=== PATIENT | male | born 1955 | race Caucasian/White ===

== ENCOUNTER → 2020-02-06 09:42 | Outpatient (CLI) | payer OTHER, SELFPAY ==
--- NOTE | ~2020-02-06 | XR_ITS ---
EXAMINATION: XR foot LT min 3V DATE: 02/06/2020 10:15 INDICATION: Sen fracture follow-up TECHNIQUE: Dorsoplantar, lateral, and 2 oblique views of the left foot were obtained. COMPARISON: None. FINDINGS: There is an oblique intra-articular fracture at the lateral base of the fifth metatarsal. T he fracture fragments are by as much as 5 mm. A posterior splint is in place. No appreciabl e calcified callus has developed. No additional acute osseous abnormality is identified. 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 IMPRESSION: 1. Splinted Sen fracture of the fifth metatarsal without definite evidence of bony healing. Reviewed, dictated and finalized at location A.
== END ==
PROVIDERS: Visit Provider Podiatrist Foot & Ankle Surgery
DX: S92.355D Nondisplaced fracture of fifth metatarsal bone, left foot, subsequent encounter for fracture with routine healing (principal); X58.XXXD Exposure to other specified factors, subsequent encounter
CPT/HCPCS: 73630

== ENCOUNTER → 2020-03-18 11:22 | Outpatient (CLI) | payer OTHER, SELFPAY ==
--- NOTE | ~2020-03-18 | XR_ITS ---
EXAMINATION: XR foot LT min 3V DATE: 03/18/2020 12:11 INDICATION: Fracture of left fifth metatarsal. TECHNIQUE: 3 views of left foot were obtained. COMPARISON: Left foot radiographs 02/06/2020 FINDINGS: There is a transverse fracture of base of fifth metatarsal. The distal fracture fragment de monstrates near-anatomic alignment. Internal fixation seen with lag screw with washer. No perivascula r lucency to suggest loosening. There is faint early callus formation. There is mild osteoarthritis o f first metatarsophalangeal joint. IMPRESSION: 1. Healing transverse fracture of base of fifth metatarsal with internal fixation. Reviewed, dictated and finalized at location A. IMPRESSION: 1. Healing transverse fracture of base of fifth metatarsal with internal fixati on.
== END ==
PROVIDERS: PCP Internal Medicine; Visit Provider Podiatrist Foot & Ankle Surgery
DX: S92.812A Other fracture of left foot, initial encounter for closed fracture (principal); X58.XXXA Exposure to other specified factors, initial encounter
CPT/HCPCS: 73630